=== PATIENT | female | born 1995 | race African-American/Black ===

== ENCOUNTER → 2021-07-31 | Outpatient (CLI) | payer OTHER ==
[2021-07-31 14:28] LABS: HEMATOCRIT 38.2 % (37.0-47.0); MEAN CELL VOLUME 85.8 fl (81.0-99.0); MEAN CORPUSCULAR HGB 28.1 pg (27.0-31.0); MEAN CORPUSCULAR HGB CONC 32.7 g/dl (33.0-37.0); MEAN PLATELET VOLUME 10.3 fl (9.6-12.3); RED BLOOD COUNT 4.45 10*6/uL (4.10-5.10); RED CELL DISTRI WIDTH 13.1 % (0-14.5)
[2021-07-31 15:02] LABS: ALKALINE PHOSPHATASE 89 U/L (45-117); BUN 6 mg/dl (7-24); CHLORIDE 109 mmol/L (98-107); CREATININE 0.78 mg/dL (0.55-1.02); POTASSIUM 3.9 mmol/L (3.5-5.1); SGOT/AST 14 IU/L (3-35); SGPT/ALT 15 U/L (12-78); SODIUM 141 mmol/L (136-145); TOTAL PROTEIN 6.8 gm/dL (6.4-8.2)
== END | disposition home or self-care (01) ==
LOC: LAB 14:13
PROVIDERS: ATTEND Family Medicine
DX: R53.83 Other fatigue (principal); D64.9 Anemia, unspecified; R10.9 Unspecified abdominal pain; M54.50 Low back pain, unspecified

== ENCOUNTER → 2021-11-18 | Outpatient (CLI) | payer OTHER ==
[2021-11-18 13:17] LABS: MEAN CELL VOLUME 86.8 fl (81.0-99.0); MEAN CORPUSCULAR HGB 28.9 pg (27.0-31.0); MEAN CORPUSCULAR HGB CONC 33.3 g/dl (33.0-37.0); MEAN PLATELET VOLUME 10.9 fl (9.6-12.3); RED BLOOD COUNT 4.61 10*6/uL (4.10-5.10); RED CELL DISTRI WIDTH 13.3 % (0-14.5); WHITE BLOOD COUNT 6.4 10*3/uL (4.8-10.8)
[2021-11-18 13:32] LABS: ALKALINE PHOSPHATASE 72 U/L (45-117); BUN 10 mg/dl (7-24); CHLORIDE 109 mmol/L (98-107); CHOLESTEROL 231 mg/dL (<200); CREATININE 0.66 mg/dL (0.55-1.02); LDL CHOLESTEROL 139 mg/dL (9-159); POTASSIUM 4.2 mmol/L (3.5-5.1); SGOT/AST 11 IU/L (3-35); SGPT/ALT 19 U/L (12-78); SODIUM 139 mmol/L (136-145); TOTAL PROTEIN 7.2 gm/dL (6.4-8.2); TRIGLYCERIDES 210 mg/dl (<150)
[2021-11-18 13:46] LABS: VITAMIN D, 25-HYDROXY 15.4 ng/mL (30-100)
== END | disposition home or self-care (01) ==
LOC: LAB 12:28
PROVIDERS: ATTEND Family Medicine
DX: Z00.00 Encounter for general adult medical examination without abnormal findings (principal); E55.9 Vitamin D deficiency, unspecified; R53.83 Other fatigue; M54.50 Low back pain, unspecified; R63.5 Abnormal weight gain

== ENCOUNTER → 2022-06-07 | Outpatient (CLI) | payer OTHER | END | disposition home or self-care (01) | LOC: US 15:48 | PROVIDERS: ATTEND Family Medicine | DX: N28.1 Cyst of kidney, acquired (principal); N28.89 Other specified disorders of kidney and ureter ==

== ENCOUNTER → 2023-03-04 | Outpatient (CLI) | payer OTHER | END | disposition home or self-care (01) | LOC: US 03:43 | PROVIDERS: ATTEND Family Medicine | DX: N83.201 Unspecified ovarian cyst, right side (principal) ==

== ENCOUNTER 2023-07-18 01:26 | Emergency (ER) | payer OTHER ==
[~2023-07-18] VITALS: Ht 175.2 cm; Wt 104.3 kg
[~2023-07-18 01:26] MED LIST changes: -GLYCOPYRROLATE IN WATER/PF 0.4 MG/2 ML SYRINGE IV ONE; -HYDROmorphONE Hydrochloride 1 MG/ML SYR IV ONE; -HYDROmorphONE Hydrochloride 1 ML IV ONE; -Midazolam Hydrochloride 2 MG/2 ML VIAL ONE; -Neostigmine Methylsulfate 3 MG/3 ML SYRINGE IV ONE; -Ondansetron Hydrochloride 4 MG/2 ML VIAL IV ONE; -PROPOFOL 200 MG/20 ML VIAL IV ONE; -ROCURONIUM BROMIDE 50 MG/5 ML SYRINGE IV ONE; -SEVOFLURANE 250 ML BOT INH ONE; -fentaNYL CITRATE 100 MCG/2 ML VIAL IV ONE
[2023-07-18] MEDS ORDERED: Lactated Ringer's Solution 1,000 ML IV ONE (07:10)
[2023-07-18] MEDS ORDERED: Midazolam Hydrochloride 2 MG/2 ML VIAL IV ONE (07:10)
== END 2023-07-18 02:30 | disposition home or self-care (01) ==
LOC: ED 01:26
DX: M25.561 Pain in right knee (principal); Z90.49 Acquired absence of other specified parts of digestive tract; Z98.890 Other specified postprocedural states; W18.49XA Other slipping, tripping and stumbling without falling, initial encounter; Y93.89 Activity, other specified; Y92.89 Other specified places as the place of occurrence of the external cause; Y99.8 Other external cause status

== ENCOUNTER → 2023-07-18 | Day surgery (SDC) | payer OTHER ==
[2023-07-14 14:10] VITALS: BP 133/85
[~2023-07-18] VITALS: Ht 175.2 cm; Wt 108.0 kg
[~2023-07-18] MED LIST: GLYCOPYRROLATE IN WATER/PF 0.4 MG/2 ML SYRINGE IV ONE; HYDROmorphONE Hydrochloride 1 MG/ML SYR IV ONE; HYDROmorphONE Hydrochloride 1 ML IV ONE; Midazolam Hydrochloride 2 MG/2 ML VIAL ONE; Neostigmine Methylsulfate 3 MG/3 ML SYRINGE IV ONE; Ondansetron Hydrochloride 4 MG/2 ML VIAL IV ONE; PROPOFOL 200 MG/20 ML VIAL IV ONE; ROCURONIUM BROMIDE 50 MG/5 ML SYRINGE IV ONE; SEVOFLURANE 250 ML BOT INH ONE; [UNRECOGNIZED DRUG - OTHER]; fentaNYL CITRATE 100 MCG/2 ML VIAL IV ONE
[2023-07-18 07:20] VITALS: BP 124/77
[2023-07-18 08:38] VITALS: BP 121/72
[2023-07-18 08:53] VITALS: BP 121/72
[2023-07-18 09:08] VITALS: BP 114/79
[2023-07-18 09:23] VITALS: BP 118/69
[2023-07-18 09:39] VITALS: BP 120/71
== END | disposition home or self-care (01) ==
LOC: SDC 07-14 14:00
PROVIDERS: ATTEND Obstetrics & Gynecology
DX: Z33.2 Encounter for elective termination of pregnancy (principal); Z90.49 Acquired absence of other specified parts of digestive tract; Z98.891 History of uterine scar from previous surgery; Z98.890 Other specified postprocedural states; Z79.899 Other long term (current) drug therapy

== ENCOUNTER → 2024-01-13 | Outpatient (CLI) | payer OTHER ==
[2024-01-13 10:06] LABS: HEMATOCRIT 40.2 % (37.0-47.0); MEAN CELL VOLUME 85.2 fl (81.0-99.0); MEAN CORPUSCULAR HGB CONC 32.8 g/dl (33.0-37.0); MEAN PLATELET VOLUME 10.7 fl (9.6-12.3); RED BLOOD COUNT 4.72 10*6/uL (4.10-5.10); RED CELL DISTRI WIDTH 13.7 % (0-14.5); WHITE BLOOD COUNT 5.9 10*3/uL (4.8-10.8)
[2024-01-13 10:31] LABS: VITAMIN D, 25-HYDROXY 14.7 ng/mL (30-100)
[2024-01-13 10:32] LABS: ALKALINE PHOSPHATASE 107 U/L (46-116); BUN 9 mg/dl (9-23); CHLORIDE 108 mmol/L (98-107); CHOLESTEROL 199 mg/dL (<200); FREE T4 1.15 ng/dl (0.89-1.76); LDL CHOLESTEROL 130 mg/dL (9-159); POTASSIUM 3.9 mmol/L (3.4-5.1); SGPT/ALT 13 U/L (5-49); TOTAL PROTEIN 7.1 gm/dL (6.0-8.0); TRIGLYCERIDES 123 mg/dl (<150)
[2024-01-17 11:08] LABS: TESTOS, FREE 0.7 pg/mL (0.0-4.2)
== END | disposition home or self-care (01) ==
LOC: LAB 09:25
PROVIDERS: ATTEND Family Medicine
DX: E55.9 Vitamin D deficiency, unspecified (principal); R53.83 Other fatigue; E74.9 Disorder of carbohydrate metabolism, unspecified; I25.10 Atherosclerotic heart disease of native coronary artery without angina pectoris; Z79.899 Other long term (current) drug therapy

== ENCOUNTER → 2024-07-04 | Outpatient (CLI) | payer OTHER ==
[2024-07-04 08:57] LABS: MEAN CELL VOLUME 86.6 fl (81.0-99.0); MEAN CORPUSCULAR HGB 27.9 pg (27.0-31.0); MEAN CORPUSCULAR HGB CONC 32.3 g/dl (33.0-37.0); MEAN PLATELET VOLUME 10.4 fl (9.6-12.3); RED BLOOD COUNT 4.62 10*6/uL (4.10-5.10); RED CELL DISTRI WIDTH 13.3 % (0-14.5); WHITE BLOOD COUNT 6.2 10*3/uL (4.8-10.8)
[2024-07-04 09:26] LABS: ALKALINE PHOSPHATASE 83 U/L (46-116); BUN 8 mg/dl (9-23); CHLORIDE 103 mmol/L (98-107); CHOLESTEROL 194 mg/dL (<200); LDL CHOLESTEROL 130 mg/dL (9-159); SGPT/ALT 18 U/L (5-49); TOTAL PROTEIN 6.7 gm/dL (6.0-8.0); TRIGLYCERIDES 76 mg/dl (<150)
== END | disposition home or self-care (01) ==
LOC: LAB 08:38
PROVIDERS: ATTEND Family Medicine
DX: E78.00 Pure hypercholesterolemia, unspecified (principal); E74.9 Disorder of carbohydrate metabolism, unspecified

== ENCOUNTER → 2024-12-28 | Outpatient (CLI) | payer OTHER ==
[2024-12-28 10:45] LABS: MEAN CELL VOLUME 87.8 fl (81.0-99.0); MEAN CORPUSCULAR HGB 28.1 pg (27.0-31.0); MEAN PLATELET VOLUME 11.2 fl (9.6-12.3); NUCLEATED RED BLOOD CELL 0.0 % (0.0-0.0); NUCLEATED RED BLOOD CELL 0.0 10*3/uL (0.0-0.0); PLATELET COUNT AUTOMATED 270.0 10*3/uL (130-400); RED CELL DISTRI WIDTH 12.6 % (0-14.5)
[2024-12-28 11:13] LABS: VITAMIN D, 25-HYDROXY 16.5 ng/mL (30-100)
[2024-12-28 11:28] LABS: BUN 12 mg/dl (9-23); CPK 82 U/L (34-171); SGPT/ALT 10 U/L (5-49)
== END | disposition home or self-care (01) ==
LOC: LAB 09:52
PROVIDERS: ATTEND Family Medicine
DX: E55.9 Vitamin D deficiency, unspecified (principal); R51.9 Headache, unspecified; E74.9 Disorder of carbohydrate metabolism, unspecified; R25.2 Cramp and spasm